=== PATIENT | male | born 1950 | race Two or more races ===

== ENCOUNTER 2021-12-12 12:41 | Inpatient (IN) | payer OTHER ==
[~2021-12-12] VITALS: Wt 97.5 kg
[2021-12-12] MEDS ORDERED: CARVEDILOL3.125 MG (13:08)
[2021-12-12] MEDS ORDERED: CRESTOR40 MG PO (13:08)
[2021-12-12] MEDS ORDERED: COZAAR25 MG PO (13:08)
[2021-12-12] MEDS ORDERED: PLAVIX75 MG (13:09)
[2021-12-12] MEDS ORDERED: RAYOS5 MG (13:09)
[2021-12-12] MEDS ORDERED: ANORO ELLIPTA1 EACH IH (13:10)
--- NOTE | 2021-12-12 13:10 | NUR ---
SE RECIBE PTE ALERTA Y ORIENTADO X3. REFIERE TENER ABSESO EL CUAL SERA OPERADO POR EL DOCTOR MELA FISHMAN EN LA MANANA. PTE ALEJANDRA REFERIDO DE .
[2021-12-13] MEDS ORDERED: COLACE100 MG PO (14:21)
[2021-12-13] MEDS ORDERED: AMOX-CLAV 875-1 EACH PO (14:21)
[2021-12-13] MEDS ORDERED: ULTRACET PO (14:48)
== END 2021-12-14 00:03 | disposition home or self-care (01) | DRG 395 ==
LOC: ER 12:41 → SURG 13:30 → SEC-K 13:30 → SURH 16:51 → SURG 22:11 → SURH 12-13 14:53
PROVIDERS: ADMIT Surgery; ATTEND Surgery
PROC: 0J9B30Z Drainage of Perineum Subcutaneous Tissue and Fascia with Drainage Device, Percutaneous Approach (ICD-10-PCS; principal; 2021-12-13 15:15)
DX: K61.0 Anal abscess (principal); I10 Essential (primary) hypertension; E78.49 Other hyperlipidemia; J44.9 Chronic obstructive pulmonary disease, unspecified; Z20.822 Contact with and (suspected) exposure to COVID-19; Z85.118 Personal history of other malignant neoplasm of bronchus and lung; Z87.891 Personal history of nicotine dependence